=== PATIENT | male | born 1990 | race Caucasian/White ===

== ENCOUNTER 2018-04-05 01:10 | Emergency (ER) | payer OTHER ==
[~2018-04-05] VITALS: Ht 175.3 cm; Wt 70.0 kg
[2018-04-05 03:03] LABS: HEMATOCRIT 46.5 % (42.0-52.0); HEMOGLOBIN 15.9 g/dL (14.0-18.0); MEAN CORPUSCULAR HEMOGLOBIN 29.1 pg (28.0-32.0); MEAN CORPUSCULAR VOLUME 85.1 fL (80.0-94.0); PLATELET 272 x1000/uL (130-400); RED BLOOD CELL COUNT 5.46 mill/uL (4.7-6.1); RED CELL DISTRIBUTION WIDTH 13.2 % (11.6-14.6)
[2018-04-05 03:09] LABS: CHLORIDE 105 mEq/L (98-107)
[2018-04-05 03:12] LABS: ETHANOL BLOOD < 10 mg/dL
[2018-04-05 05:38] VITALS: BP 118/45
== END 2018-04-05 05:38 | disposition home or self-care (01) ==
LOC: ER 01:10
DX: R55 Syncope and collapse (principal)
CPT/HCPCS: 36415; 80053; 82962; 85027; 93005; 99284; G0482